=== PATIENT | male | born 2000 | race American Indian/Alaskan Native ===

== ENCOUNTER 2020-06-25 09:43 | Emergency (ER) | payer OTHER ==
--- NOTE | 2020-06-25 13:19 | RAD REPORT ---
EXAM DESCRIPTION: US - Scrotum Testicles - 06/25/2020 12:53 pm CLINICAL HISTORY: Testicular pain COMPARISON: None FINDINGS: Right testicle measures 3.2 x 1.6 x 2.3 centimeters. Echotexture is homogeneous. Normal bl ood flow Left testicle measures 3.2 x 1.8 x 2.2 centimeters. Echotexture is homogeneous. Normal blood flow The epididymides are normal in size and echotexture. Normal blood flow is seen. Two small left spermatoceles. The largest measures 3 millimeters IMPRESSION: Small left spermatoceles
[2020-06-25 13:20] LABS: Urine Blood NEGATIVE (NEG); Urine Glucose NEGATIVE (NEG); Urine Protein NEGATIVE (NEG)
[2020-06-25 13:24] LABS: Urine Bacteria NONE SEEN /HPF (NONE SEEN); Urine RBC NONE SEEN /HPF (NONE SEEN)
--- NOTE | 2020-06-25 14:07 | RAD REPORT ---
EXAM DESCRIPTION: CT - Stone Protocol - 06/25/2020 1:53 pm CLINICAL HISTORY: Abdominal pain. COMPARISON: None. TECHNIQUE: Computed axial tomography of the abdomen pelvis was obtained without oral or IV contrast. Lack of IV and oral contrast limits evaluation of solid organs, bowel, and vessels. Coronal reformat sofya images were obtained and reviewed. All CT scans are performed using dose optimization technique as appropriate and may include automated exposure control or mA/KV adjustment according to patient size. FINDINGS: A renal calculus is not seen. An ureteral calculus is not noted. A bladder calculus is not present. The liver, spleen, pancreas and adrenals appear grossly normal There is no evidence of diverticulitis. The rectum is mildly distended with stool. IMPRESSION: Negative for a genitourinary calculus Rectum is mildly distended with stool
--- NOTE | 2020-06-25 14:18 | EDPHYS ---
Physician Documentation [facility] Name: Seth Jones Age: 19 yrs Sex: Male : 2000 Arrival Date: 06/25/2020 Time: 09:48 Bed 23 Private MD: ED Physician Julius Drake HPI: 06/25 12:20 This 19 yrs old Other Male presents to ER via Ambulatory with complaints of Testicular cp Swelling. 12:20 The patient presents with scrotal pain, of the left side, tenderness, of the left cp testicle. Onset: The symptoms/episode began/occurred yesterday, at 19:00. Associated signs and symptoms: Pertinent positives: abdominal pain, Pertinent negatives: constipation, diarrhea, dysuria, fever, hematuria, vomiting. Severity of symptoms: in the emergency department the symptoms are unchanged, despite home interventions. Historical: - Allergies: 10:13 No Known Allergies; ss - Home Meds: 10:13 None [Active]; ss - PMHx: 10:13 None; ss - PSHx: 10:13 None; ss - Immunization history:: Adult Immunizations not up to date. - Social history:: Smoking status: Patient denies any tobacco usage or history of. ROS: 12:30 Constitutional: Negative for body aches, chills, fever, poor PO intake. cp 12:30 Eyes: Negative for injury, pain, redness, and discharge. cp 12:30 Cardiovascular: Negative for chest pain, palpitations. 12:30 Respiratory: Negative for cough, shortness of breath, wheezing. 12:30 Abdomen/GI: Positive for abdominal pain, Negative for vomiting, diarrhea, constipation, anorexia, black/tarry stool, rectal bleeding. 12:30 Back: Negative for pain at rest, pain with movement, radiated pain. 12:30 : Positive for testicular pain Negative for urinary symptoms. 12:30 Neuro: Negative for altered mental status, headache, weakness. 12:30 All other systems are negative. Exam: 12:35 Constitutional: The patient appears in no acute distress, alert, awake, comfortable, cp non-toxic, well developed, well nourished. 12:35 Head/Face: Normocephalic, atraumatic. cp 12:35 Chest/axilla: Inspection: normal. 12:35 Cardiovascular: Rate: normal. 12:35 Respiratory: the patient does not display signs of respiratory distress, Respirations: normal, no use of accessory muscles, no retractions, labored breathing, is not present. 12:35 Abdomen/GI: Inspection: abdomen appears normal, Bowel sounds: active, all quadrants, Palpation: soft, in all quadrants, mild abdominal tenderness, in the suprapubic area and left lower quadrant, rebound tenderness, is not appreciated, voluntary guarding, is not appreciated, involuntary guarding, is not appreciated. 12:35 Back: CVA tenderness, is absent. 12:35 : Male external genitalia: Patient is not circumisioned. erythema, is absent, swelling: is not appreciated, tenderness, of the left testicle is noted, that is mild. 12:35 Skin: cellulitis, is not appreciated, no rash present. Vital Signs: 10:10 BP 128 / 78; Pulse 73; Resp 15; Temp 98.2(TE); Pulse Ox 99% on R/A; Weight 56.25 kg; ss Height 5 ft. 5 in. (165.10 cm); Pain 6/10; 12:10 BP 136 / 85; Pulse 70; Resp 16; Pulse Ox 100% on R/A; vg1 13:12 BP 120 / 83; Pulse 74; Resp 16; Pulse Ox 99% on R/A; vg1 15:03 BP 117 / 88; Pulse 80; Resp 14; Pulse Ox 100% on R/A; vg1 10:10 Body Mass Index 20.63 (56.25 kg, 165.10 cm) ss MDM: 12:07 Patient medically screened. kennedy 12:30 Differential diagnosis: UTI, prostatitis, urethritis, testicular torsion, epididymitis. cp 14:15 Data reviewed: vital signs, nurses notes, lab test result(s), radiologic studies, CT cp scan, ultrasound, and as a result, I will discharge patient. 14:15 Counseling: I had a detailed discussion with the patient and/or guardian regarding: the cp historical points, exam findings, and any diagnostic results supporting the discharge/admit diagnosis, lab results, radiology results, to return to the emergency department if symptoms worsen or persist or if there are any questions or concerns that arise at home. ED course: VSS. US negative for torsion. Will discharge to home for continued monitoring. 06/25 12:20 Order name: Urine Microscopic Only; Complete Time: 13:26 06/25 13:18 Order name: Urine Dipstick--Ancillary (enter results); Complete Time: 13:21 06/25 13:21 Interpretation: Reviewed. 06/25 12:15 Order name: US Scrotum Testicles; Complete Time: 13:20 06/25 13:20 Interpretation: Report reviewed. 06/25 12:20 Order name: Urine Dipstick-Ancillary (obtain specimen); Complete Time: 13:10 06/25 13:23 Order name: CT Stone Protocol; Complete Time: 14:11 06/25 14:11 Interpretation: Report reviewed. cp Administered Medications: 15:03 Drug: Rocephin (cefTRIAXone) 250 mg Route: IM; Site: right gluteus; vg1 15:03 Follow up: Response: Medication administered at discharge. vg1 Disposition: 06/26 11:07 Co-signature as Attending Physician, Julius Drake MD I agree with the assessment and kennedy plan of care. Disposition: 06/25/20 14:17 Discharged to Home. Impression: Other specified disorders of male genital organs - left testicle pain. - Condition is Stable. - Prescriptions for Naprosyn 375 mg Oral Tablet - take 1 tablet by ORAL route 2 times per day take with food; 30 tablet. Doxycycline Monohydrate 100 mg Oral Tablet - take 1 tablet by ORAL route every 12 hours for 10 days; 20 tablet. - Medication Reconciliation Form, Thank You Letter, Antibiotic Education, Prescription Opioid Use form. - Follow up: Lenny Su MD; When: 2 - 3 days; Reason: Recheck today's complaints. - Problem is new. - Symptoms have improved. Signatures: Dispatcher [employer] Julius Booth MD MD cha Smirch, Shelby, RN RN Julius Perez PA PA cp Garcia, Victoria, RN RN vg1 Corrections: (The following items were deleted from the chart) 06/25 15:05 14:17 06/25/2020 14:17 Discharged to Home. Impression: Other specified disorders of vg1 male genital organs - left testicle pain. Condition is Stable. Forms are Medication Reconciliation Form, Thank You Letter, Antibiotic Education, Prescription Opioid Use. Follow up: Lenny Su; When: 2 - 3 days; Reason: Recheck today's complaints. Problem is new. Symptoms have improved. cp
--- NOTE | 2020-06-25 14:18 | ER ---
Nurse's Notes [facility] Name: Seth Jones Age: 19 yrs Sex: Male : 2000 Arrival Date: 06/25/2020 Time: 09:48 Bed 23 Private MD: Diagnosis: Other specified disorders of male genital organs-left testicle pain Presentation: 06/25 10:10 Chief complaint: Patient states: Sudden onset of L testicular pain that began at 7 PM ss last night. Pt reports that the pain in his testicle is almost gone, but is now experiencing lower abd pain. Coronavirus screen: Client denies travel out of the [place] in the last 14 days. Ebola Screen: Patient denies exposure to infectious person. Patient denies travel to an Ebola-affected area in the 21 days before illness onset. Initial Sepsis Screen: Does the patient meet any 2 criteria? No. Patient's initial sepsis screen is negative. Does the patient have a suspected source of infection? No. Patient's initial sepsis screen is negative. Risk Assessment: Do you want to hurt yourself or someone else? Patient reports no desire to harm self or others. Onset of symptoms was June 24, 2020. 10:10 Method Of Arrival: Ambulatory ss 10:10 Acuity: BECKY 3 ss Historical: - Allergies: 10:13 No Known Allergies; ss - Home Meds: 10:13 None [Active]; ss - PMHx: 10:13 None; ss - PSHx: 10:13 None; ss - Immunization history:: Adult Immunizations not up to date. - Social history:: Smoking status: Patient denies any tobacco usage or history of. Screenin:10 Abuse screen: Denies threats or abuse. Nutritional screening: No deficits noted. vg1 Tuberculosis screening: No symptoms or risk factors identified. Fall Risk None identified. Assessment: 12:21 General: Appears in no apparent distress. comfortable, Behavior is calm, cooperative. vg1 Pain: Complains of pain in Lower ABD. 12:21 Pain: Pain currently is 7 out of 10 on a pain scale. Pain: Pain: Complains of pain in vg1 left testicle. Neuro: Level of Consciousness is awake, alert, obeys commands, Oriented to person, place, time, situation. Cardiovascular: Patient's skin is warm and dry. Respiratory: Airway is patent Respiratory effort is even, unlabored. GI: Reports last BM was a week ago Patient currently denies nausea, vomiting. : No signs and/or symptoms were reported regarding the genitourinary system. EENT: No signs and/or symptoms were reported regarding the EENT system. Derm: Skin is intact, is healthy with good turgor. Musculoskeletal: Circulation, motion, and sensation intact. 13:12 Reassessment: Patient appears in no apparent distress at this time. No changes from vg1 previously documented assessment. Patient and/or family updated on plan of care and expected duration. Pain level reassessed. Patient is alert, oriented x 3, equal unlabored respirations, skin warm/dry/pink. 15:03 Reassessment: Patient appears in no apparent distress at this time. Patient and/or vg1 family updated on plan of care and expected duration. Pain level reassessed. Patient is alert, oriented x 3, equal unlabored respirations, skin warm/dry/pink. Vital Signs: 10:10 BP 128 / 78; Pulse 73; Resp 15; Temp 98.2(TE); Pulse Ox 99% on R/A; Weight 56.25 kg; ss Height 5 ft. 5 in. (165.10 cm); Pain 6/10; 12:10 BP 136 / 85; Pulse 70; Resp 16; Pulse Ox 100% on R/A; vg1 13:12 BP 120 / 83; Pulse 74; Resp 16; Pulse Ox 99% on R/A; vg1 15:03 BP 117 / 88; Pulse 80; Resp 14; Pulse Ox 100% on R/A; vg1 10:10 Body Mass Index 20.63 (56.25 kg, 165.10 cm) ED Course: 09:48 Patient arrived in ED. mr 10:13 Triage completed. ss 10:13 Arm band placed on right wrist. ss 12:06 Julius Ryder PA is PHCP. cp 12:06 Julius Drake MD is Attending Physician. cp 12:10 Patient has correct armband on for positive identification. Bed in low position. Call vg1 light in reach. 12:11 Tigist Melendez, RN is Primary Nurse. vg1 12:43 US Scrotum Testicles In Process Unspecified. EDMS 13:53 CT Stone Protocol In Process Unspecified. EDMS 14:15 Lenny Su MD is Referral Physician. cp 15:04 No provider procedures requiring assistance completed. Patient did not have IV access vg1 during this emergency room visit. Administered Medications: 15:03 Drug: Rocephin (cefTRIAXone) 250 mg Route: IM; Site: right gluteus; vg1 15:03 Follow up: Response: Medication administered at discharge. vg1 Outcome: 14:17 Discharge ordered by MD. cp 15:04 Discharged to home ambulatory. vg1 15:04 Condition: stable 15:04 Discharge instructions given to patient, Instructed on discharge instructions, follow up and referral plans. medication usage, Demonstrated understanding of instructions, follow-up care, medications, Prescriptions given X 2. 15:05 Patient left the ED. vg1 Signatures: Dispatcher [employer] SANCHEZ JoseRadha Shelby, RN RN Julius Perez, SHANNON PA Tigist Hernandez, RN RN vg1 Corrections: (The following items were deleted from the chart) 13:17 13:12 Reassessment: Patient appears in no apparent distress at this time. Patient vg1 and/or family updated on plan of care and expected duration. Pain level reassessed. Patient is alert, oriented x 3, equal unlabored respirations, skin warm/dry/pink. vg1
[2020-06-25] MEDS ORDERED: CEFTRIAXONE 250 MG/VIAL ONE (15:01)
[2020-06-25] MEDS ORDERED: WATER FOR INJ,STERILE 10 ML ONE (15:02)
[2020-06-25 15:09] VITALS: TEMP 98.2
[2020-06-25 15:13] VITALS: BP 117/88; O2SAT 100
== END 2020-06-25 15:05 | disposition home or self-care (01) ==
LOC: ER 09:43
DX: N50.89 Other specified disorders of the male genital organs (principal)
CPT/HCPCS: 76377; 74176; 76870; J0696; 81003; 81015; 96372; 99283